=== PATIENT | female | born 1985 | race African-American/Black ===

== ENCOUNTER 2020-02-20 12:10 | Emergency (ER) | payer BC, SELFPAY ==
[2020-02-20 13:49] LABS: #Basophils 0.1 thou/uL (0.0-0.2); #Eosinphils 0.2 thou/uL (0.0-0.7); #Lymphocytes 2.5 thou/uL (1.20-3.40); #Monocytes 0.4 thou/uL (0.11-0.59); #Neutrophils 3.3 thou/uL (1.40-6.50); %Basophils 0.9 % (0.0-1.0); %Eosinophils 2.4 % (0.0-10.0); %Lymphocytes 38.7 % (21.0-51.0); %Monocytes 6.7 % (0.0-10.0); %Neutrophils 51.4 % (42.0-75.0); Hemoglobin 13.9 g/dL (12.0-16.0); Mean Corpuscular HGB CONC 33.1 g/dL (32.0-36.0); Mean Corpuscular Hemoglobin 29.5 pg (27.0-31.0); Mean Corpuscular Volume 89.2 fL (78.0-98.0); Mean Platelet Volume 9.5 fL (7.4-10.4); Platelet Count 266 thou/uL (130-400); RBC Distribution Width 12.3 % (11.5-14.5); Red Blood Cell (RBC) Count 4.71 mill/uL (4.20-5.40); White Blood Cell (WBC) Count 6.5 thou/uL (4.8-10.8)
[2020-02-20 13:58] LABS: BHCG - Serum Negative (NEGATIVE); Pregs Control Background? CLEAR/WHITE (CLR/WHITE); Pregs Control Bar Appear? YES (CONTROL BAR)
[2020-02-20 14:18] LABS: ALT (SGPT) 29 U/L (8-55); AST (SGOT) 37 U/L (5-34); Albumin 4.2 g/dL (3.5-5.0); Alkaline Phosphatase 45 U/L (40-110); Anion Gap 14 mmol/L (10-20); BUN (Urea Nitrogen) 14 mg/dL (7.0-18.7); Bilirubin, Total Less than 0.2 mg/dL (0.2-1.2); Calc. Creatinine Clearance 0 mL/min (70-130); Calcium 9.2 mg/dL (7.8-10.44); Carbon Dioxide 24 mmol/L (22-29); Chloride 106 mmol/L (98-107); Estimated GFR-MDRD Greater than 90; Globulin 3.2 g/dL (2.4-3.5); Glucose 82 mg/dL (70-105); Potassium 4.3 mmol/L (3.5-5.1); Protein, Total 7.4 g/dL (6.0-8.3); Sodium 140 mmol/L (136-145)
[2020-02-20] MEDS ORDERED: Ketorolac Tromethamine 30 MG/ML VIAL ONE (15:14)
== END 2020-02-20 15:41 | disposition home or self-care (01) ==
LOC: ERS 12:10
DX: N94.6 Dysmenorrhea, unspecified (principal)
CPT/HCPCS: 36415; 80053; 84703; 85025; 99281; J1885

== ENCOUNTER 2020-04-14 14:39 | Emergency (ER) | payer SELFPAY ==
[2020-04-14 21:01] LABS: SARS-CoV-2 MS2 Positive; SARS-CoV-2 N Gene Negative; SARS-CoV-2 S Gene Negative; SARS-CoV-2 by NAA Not Detected (NotDetected); SARS-CoV-2 orf1ab Negative
== END 2020-04-14 15:52 | disposition home or self-care (01) ==
LOC: ERS 14:39
DX: R05 Cough (principal); R19.7 Diarrhea, unspecified; R07.89 Other chest pain; R11.0 Nausea; Z20.828 Contact with and (suspected) exposure to other viral communicable diseases
CPT/HCPCS: 87635; 99283; U0003

== ENCOUNTER 2020-04-23 11:37 | Emergency (ER) | payer SELFPAY ==
[2020-04-23 13:24] LABS: Bilirubin Negative (Negative); Blood, Urine Negative (Negative); Clarity Clear (Clear); Glucose, Urine (Dipstick) Normal (Negative); Ketone, Urine Negative (Negative); Leukocyte Negative Leu/uL (Negative); Nitrite Negative (Negative); Pregnancy Test - Urine (BHCG) Negative (Negative); Protein, Urine (Dipstick) 20 mg/dL (Neg-Trace); Specific Gravity, Urine 1.034 (1.002-1.036); Urobilinogen Normal mg/dL (Less than 2); pH, Urine 5.5 (5.0-9.0)
[2020-04-23 13:25] LABS: Pregu Control Background? CLEAR/WHITE (CLR/WHITE); Pregu Control Bar Appear? YES (CONTROL BAR); Specific Gravity 1.034 (1.002-1.036)
== END 2020-04-23 13:32 | disposition home or self-care (01) ==
LOC: ERS 11:37
DX: B34.2 Coronavirus infection, unspecified (principal)
CPT/HCPCS: 81003; 81025; 99283

== ENCOUNTER 2021-04-13 23:01 | Emergency (ER) | payer BC, OTHER, SELFPAY ==
[2021-04-14 10:21] LABS: SARS-CoV-2 PCR by NAA Not Detected (NotDetected)
== END 2021-04-14 00:20 | disposition home or self-care (01) ==
LOC: ERS 23:01
DX: B34.9 Viral infection, unspecified (principal); Z20.822 Contact with and (suspected) exposure to COVID-19
CPT/HCPCS: 87804; 99283; U0003; U0005

== ENCOUNTER 2021-06-10 16:50 | Emergency (ER) | payer BC, OTHER ==
[~2021-06-10 16:50] MED LIST: Iopamidol 370 76% 100 ML VIAL ONE
[2021-06-10 17:19] LABS: #Eosinphils 0.2 thou/uL (0.0-0.7); #Lymphocytes 2.1 thou/uL (1.20-3.40); #Monocytes 0.5 thou/uL (0.11-0.59); #Neutrophils 3.3 thou/uL (1.40-6.50); %Basophils 0.2 % (0.0-1.0); %Eosinophils 2.6 % (0.0-10.0); %Lymphocytes 34.5 % (21.0-51.0); %Monocytes 7.7 % (0.0-10.0); Hemoglobin 13.2 g/dL (12.0-16.0); Mean Corpuscular HGB CONC 32.6 g/dL (32.0-36.0); Mean Corpuscular Hemoglobin 29.8 pg (27.0-31.0); Mean Corpuscular Volume 91.3 fL (78.0-98.0); Mean Platelet Volume 7.8 fL (7.4-10.4); Platelet Count 255 thou/uL (130-400); Red Blood Cell (RBC) Count 4.45 mill/uL (4.20-5.40); White Blood Cell (WBC) Count 5.9 thou/uL (4.8-10.8)
[2021-06-10 17:24] LABS: BHCG - Serum Negative (NEGATIVE)
[2021-06-10 17:25] LABS: Pregs Control Background? CLEAR/WHITE (CLR/WHITE); Pregs Control Bar Appear? YES (CONTROL BAR)
[2021-06-10 17:33] LABS: ALT (SGPT) 27 U/L (8-55); AST (SGOT) 38 U/L (5-34); Albumin 3.9 g/dL (3.5-5.0); Alkaline Phosphatase 43 U/L (40-110); Anion Gap 12 mmol/L (10-20); BUN (Urea Nitrogen) 13 mg/dL (7.0-18.7); Bilirubin, Total 0.3 mg/dL (0.2-1.2); Calc. Creatinine Clearance 0 mL/min (70-130); Calcium 9.2 mg/dL (7.8-10.44); Carbon Dioxide 25 mmol/L (22-29); Chloride 106 mmol/L (98-107); Globulin 2.7 g/dL (2.4-3.5); Glucose 101 mg/dL (70-105); Potassium 3.7 mmol/L (3.5-5.1); Protein, Total 6.6 g/dL (6.0-8.3); Sodium 139 mmol/L (136-145)
[2021-06-10] MEDS ORDERED: Fentanyl 100 MCG/2 ML VIAL ONE (17:43)
[2021-06-10] MEDS ORDERED: Ondansetron PF 4 MG/2 ML Vial ONE (17:43)
[2021-06-10] MEDS ORDERED: Ketorolac Tromethamine 30 MG/ML VIAL ONE ×2 (18:35→18:42)
== END 2021-06-10 19:05 | disposition home or self-care (01) ==
LOC: ERS 16:50
DX: M54.50 Low back pain, unspecified (principal); R10.819 Abdominal tenderness, unspecified site; V89.2XXA Person injured in unspecified motor-vehicle accident, traffic, initial encounter
CPT/HCPCS: 71260; 74177; 80053; 84703; 85025; 96374; 96375; J1885; J2405; J3010; Q9967

== ENCOUNTER 2021-06-15 11:50 | Emergency (ER) | payer OTHER, BC ==
[2021-06-15] MEDS ORDERED: Ketorolac Tromethamine 30 MG/ML VIAL ONE (13:16)
== END 2021-06-15 13:32 | disposition home or self-care (01) ==
LOC: ERS 11:50
DX: S39.012A Strain of muscle, fascia and tendon of lower back, initial encounter (principal); V49.9XXA Car occupant (driver) (passenger) injured in unspecified traffic accident, initial encounter
CPT/HCPCS: 96372; 99283; J1885

== ENCOUNTER 2022-07-06 14:14 | Emergency (ER) | payer OTHER, SELFPAY ==
[2022-07-06] MEDS ORDERED: HYDROcodone/Acetaminophen 10/325 mg Tablet ONE (14:59)
== END 2022-07-06 17:05 | disposition home or self-care (01) ==
LOC: ERS 14:14
DX: M79.605 Pain in left leg (principal); V09.09XA Pedestrian injured in nontraffic accident involving other motor vehicles, initial encounter; Y93.01 Activity, walking, marching and hiking; Y92.481 Parking lot as the place of occurrence of the external cause
CPT/HCPCS: 72170

== ENCOUNTER 2023-04-08 16:53 | Emergency (ER) | payer BC, OTHER ==
[2023-04-08 18:11] LABS: SARS-CoV-2 NAA Rapid Test Not Detected (NotDetected)
== END 2023-04-08 19:21 | disposition home or self-care (01) ==
LOC: ERS 16:53
DX: B34.9 Viral infection, unspecified (principal); Z20.822 Contact with and (suspected) exposure to COVID-19
CPT/HCPCS: 99283

== ENCOUNTER 2023-10-12 16:01 | Emergency (ER) | payer OTHER | END 2023-10-12 17:29 | disposition home or self-care (01) | LOC: ERS 16:01 | DX: L98.9 Disorder of the skin and subcutaneous tissue, unspecified (principal) | CPT/HCPCS: 99282 ==